=== PATIENT | female | born 1990 | race Caucasian/White ===

== ENCOUNTER 2019-08-07 00:19 | Outpatient (CLI) | payer OTHER, SELFPAY ==
[2019-08-07 16:10] LABS: SARS-CoV-2 RNA PCR Negative
== END 2019-08-07 00:20 | disposition home or self-care (01) ==
LOC: ANHCOVIDDT 00:19
PROVIDERS: Visit Provider Obstetrics & Gynecology
DX: Z01.818 Encounter for other preprocedural examination (principal); Z11.59 Encounter for screening for other viral diseases
CPT/HCPCS: 87635; C9803; U0003

== ENCOUNTER 2019-08-09 01:40 | Day surgery (SDC) | payer OTHER, SELFPAY ==
[2019-08-01 09:15] VITALS: BMI 23.0
[2019-08-09] VITALS (8 sets, daily range): BP systolic 106–118; BP diastolic 53–89; PULSE 53–69; RESP 12–20; TEMP 36.5–36.7; O2SAT 99–100
--- NOTE | 2019-08-09 11:25 | PM.IMHP ---
H&P: HPI History of Present Illness Chief complaint: Menometrorrhagia/ Desires Sterilization Narrative: Brooklynn Storey is a 28 year old female presents with menstrual cycles lasting 7-10 days 3-5 days heavy clotting and cramping. Ultrasound revealed no significant abnormalities. Also desires permanent sterilization in the form of bilateral salpingectomy. We have discussed permanence failure rate increased risk of regret she states good understanding and strongly desires to proceed with both. Review of Systems Review of Systems: All systems reviewed & are unremarkable except as noted in HPI and below Meds Home Medications and Allergies Home Medications Medication Instructions Recorded Confirmed Type vitamin C-biotin [[id number] 2 tablet PO DAILY 08/01/19 08/01/19 History (vit C-biotin)] Allergies Allergy/AdvReac Type Severity Reaction Status Date / Time codeine Allergy Severe BECOMES Verified 08/01/19 09:16 VIOLENT- PT CAN TAKE VICODIN PER RN adhesive Allergy Unknown RASH Verified 08/01/19 09:16 Exam Const: General: no acute distress Resp: Auscultation: clear to auscultation bilaterally Cardio: Rate: regular rate Rhythm: regular rhythm GI: GI Palp: Yes Soft to palpation : External Female Exam: normal external appearance Other: Uterus mildly enlarged. Assessment and Plan Assessment and plan (1) Menometrorrhagia: Code(s): N92.1 - Excessive and frequent menstruation with irregular cycle Status: Acute (2) Dysmenorrhea: Code(s): N94.6 - Dysmenorrhea, unspecified Status: Acute (3) Encounter for female sterilization procedure: Code(s): Z30.2 - Encounter for sterilization Status: Acute Additional Plan Proceed with endometrial ablation (the uterine curettings) as well as bilateral salpingectomy.
--- NOTE | 2019-08-09 11:34 | WPDANESEPPF ---
Anes - Initial Pre Proc Eval Procedure: Operation Date: 08/09/19 13:00 Proposed Procedures p Laparoscopic Bilateral Salpingectomy, Hysteroscopy, Dilation And Curettage Pearl Endometrial Ablation - Dereck Wade MD Date/Time: 08/09/19 11:34 Surgeon: Dereck Wade MD Pre Op Diagnosis: Menometrorrhagia/ Desires Sterilization Patient Data Age: 28 Gender: F Height: 5 ft 3 in Weight: 58.97 kg Allergies Allergy/AdvReac Type Severity Reaction Status Date / Time codeine Allergy Severe BECOMES Verified 08/01/19 09:16 VIOLENT- PT CAN TAKE VICODIN PER RN adhesive Allergy Unknown RASH Verified 08/01/19 09:16 Home Medications Medication Instructions Recorded Confirmed Type vitamin C-biotin [[id number] 2 tablet PO DAILY 08/01/19 08/01/19 History (vit C-biotin)] Patient hx anesthesia problems: none Family hx anesthesia problems: none Anes - Eval Final PreProcedure Day of Procedure 08/09/19 11:34 Patient weight: normal Heart: regular rate and rhythm Lungs: clear to auscultation Airway: Mallampati scale class 1 Neurological: alert and oriented Last oral intake: >/= 8 hours ASA classification: II Emergent: no Anesthetic plan: proceed Anesthesia type and monitoring: general ETT and standard monitoring Informed Consent: The patient's anesthetic plan and its attendant risks and benefits were discussed with the patient/family/POA. Questions were solicited and answers provided to the satisfaction of the patient/family/POA.
[2019-08-09] MEDS: LACTATED RINGERS 1,000 ML 30 ML IV CONT ×2 (11:40→14:23)
[2019-08-09] MEDS: ceFAZolin 2 GM/D5W 50 ML 2 GM/50 ML BAG IVPB (13:31)
[2019-08-09] MEDS: KETOROLAC 30 MG/ML VIAL (*BKC) IV PUSH (14:04)
--- NOTE | 2019-08-09 14:09 | P.OPB_ITS ---
Procedure Note - Brief Procedure Note - Brief Date of procedure: 08/09/19 Pre-op diagnosis: Menometrorrhagia/ Desires Sterilization Post-op diagnosis: same Procedure performed: 1. Hysteroscopy with uterine curettings 2. Nerve endometrial ablation 3. Bilateral salpingectomy Description of procedure: Patient prepped in usual manner for this procedure. Cervical instruments were placed for uterine mobility later in the case. Periumbilical and lower abdominal trocar sites were placed under direct visualization. Using Harmonic scalpel bilaterally the mesosalpinx were incised and the tubes were removed without difficulty. Trocar sites were and approximated using 4 0 Monocryl. Cervix was dilated allow the hysteroscope to place revealed no abnormalities. Uterine curettings were obtained and over instrument was placed. Cavity assessment performed and is right was activated. At the end of the process the maneuver instruments removed hysteroscope was placed with good destruction noted throughout. This point seizure was considered terminated. [facility] Surgeon: Dereck Wade MD Estimated blood loss (mL): 10 Drains: No Packing: No Pathology: yes (1. Endometrium 2. Bilateral fallopian tubes) Complications: No immediate complications Condition: stable Disposition: PACU Findings: Laparoscopic exam revealed no abnormalities. Hysteroscopic exam revealed minimally thickened tissue but no polyps or fibroids.
== END 2019-08-09 16:00 | disposition home or self-care (01) ==
PROVIDERS: Visit Provider Obstetrics & Gynecology
PROC: 0UDB8ZZ Extraction of Endometrium, Via Natural or Artificial Opening Endoscopic (ICD-10-PCS; CPT 58558; principal; 2019-08-09 13:00)
DX: N92.1 Excessive and frequent menstruation with irregular cycle (principal); Z30.2 Encounter for sterilization; N84.0 Polyp of corpus uteri
CPT/HCPCS: 58661; 58563; 88302; 88305; A9270; J0131; J0330; J0690; J1885; J2250; J2405; J2704; J3010; J7030; J7120